=== PATIENT | female | born 1965 | race Two or more races ===

== ENCOUNTER 2019-07-01 17:59 | Inpatient (IN) | payer MEDICAID ==
[~2019-07-01] VITALS: Ht 152.4 cm; Wt 43.2 kg
[2019-07-01] MEDS ORDERED: HYDROCORTISONE SOD SUCC 100 MG/2 ML VIAL IVP ONE (18:30)
[2019-07-01] MEDS ORDERED: PROPRANOLOL HCL 1 MG/ML VIAL IVP ONE (18:30)
[2019-07-01] MEDS ORDERED: PROPYLTHIOURACIL 50 MG TABLET PO ONE (18:30)
[2019-07-01 18:45] LABS: BASOPHILS % (AUTO) 0.3 % (0.0-2.0); EOSINOPHILS % (AUTO) 0.8 % (1.0-6.0); HEMATOCRIT 41.1 % (36-46); HEMOGLOBIN 13.6 g/dL (12.0-16.0); LYMPHOCYTES # (AUTO) 1.6 K/uL (1.0-4.8); LYMPHOCYTES % (AUTO) 19.1 % (22.0-44.0); MEAN CORPUSCULAR HEMOGLOBIN 27.7 pg (26.0-34.0); MEAN CORPUSCULAR HGB CONC 33.1 G/dL (31.0-37.0); MEAN CORPUSCULAR VOLUME 84 fL (80-100); MONOCYTES # (AUTO) 0.7 K/uL (0.1-1.0); MONOCYTES % (AUTO) 8.3 % (2.0-9.0); NEUTROPHILS % (AUTO) 71.5 % (40.0-70.0); PLATELET COUNT (AUTO) 218 K/uL (150-450); RED BLOOD CELL COUNT(AUTO) 4.91 MIL/uL (4.00-5.20)
[2019-07-01 18:57] LABS: ANION GAP 10 mmol/L (8-16); CALCIUM, TOTAL 9.2 mg/dL (8.8-10.5); CARBON DIOXIDE 23 mmol/L (22-29); CHLORIDE 105 mmol/L (98-107); CREATININE 0.43 mg/dL (0.60-1.30); GLOMERULAR FILTR. RATE CALC > 60 mL/min (>60); GLUCOSE,RANDOM 128 mg/dL (70-110); POTASSIUM 4.5 mmol/L (3.5-5.1); SODIUM SERUM 138 mmol/L (136-145); UREA NITROGEN, BLOOD 14 mg/dL (7-18)
[2019-07-01 19:09] LABS: B-TYPE NATRIURETIC PEPTIDE 230 pg/mL (0-100)
[2019-07-01 19:11] LABS: ALANINE AMINOTRANSFERASE 14 U/L (12-78); ALBUMIN 3.2 g/dL (3.4-5.0); ALKALINE PHOSPHATASE 325 U/L (46-116); ASPARTATE AMINOTRANSFERASE 17 U/L (15-37); BILIRUBIN,TOTAL 0.6 mg/dL (0.1-1.0); CREATINE KINASE, TOTAL ONLY 31 U/L (26-192)
[2019-07-01] MEDS ORDERED: SODIUM CHLORIDE 0.9% 1,000 ML IV ONE (19:15)
[2019-07-01 19:35] LABS: THYROID STIMULATING HORMONE < 0.01 uIU/mL (0.36-3.74)
[2019-07-01] MEDS ORDERED: DILTIAZEM HCL 5 MG/ML 5 ML VIAL IVP ONE ×2 (19:45→20:45)
[2019-07-01] MEDS ORDERED: POTASSIUM IODIDE PO ONE (20:00)
[2019-07-01 20:16] LABS: APPEARANCE,URINE CLEAR (CLEAR); BILIRUBIN,URINE NEGATIVE (NEGATIVE); GLUCOSE, URINE (UA) NEGATIVE (NEGATIVE); KETONES,URINE NEGATIVE (NEGATIVE); LEUKOCYTE ESTERASE ,URINE NEGATIVE (NEGATIVE); NITRATE,URINE NEGATIVE (NEGATIVE); OCCULT BLOOD,URINE NEGATIVE (NEGATIVE); PROTEIN,URINE NEGATIVE (NEGATIVE); UROBILINOGEN,URINE 0.2 mg/dL (<=1.0)
[2019-07-01 20:21] LABS: AMPHET/METH SCREEN,URINE NEGATIVE (NEGATIVE); BARBITURATE SCREEN, URINE NEGATIVE (NEGATIVE); BENZODIAZEPINES SCREEN,URINE NEGATIVE (NEGATIVE); CANNABINOID SCREEN,URINE POSITIVE (NEGATIVE); COCAINE SCREEN,URINE NEGATIVE (NEGATIVE); METHADONE SCREEN, URINE NEGATIVE (NEGATIVE); OPIATE SCREEN,URINE NEGATIVE (NEGATIVE)
[2019-07-01 20:43] LABS: PHENCYCLIDINE SCREEN,URINE NEGATIVE (NEGATIVE)
[2019-07-01] MEDS ORDERED: ONDANSETRON HCL 4 MG/2 ML VIAL IVP PRN (20:45)
[2019-07-01] MEDS ORDERED: ACETAMINOPHEN 325 MG TABLET PO PRN (20:45)
[2019-07-01] MEDS ORDERED: DILTIAZEM HCL 125 MG in DEXTROSE 5%-WATER 100 ML IV SCH (21:00)
[2019-07-01 22:17] VITALS: BP 129/90
[2019-07-02] MEDS ORDERED: ZOLPIDEM TARTRATE 5 MG TABLET PO PRN (01:00)
[2019-07-02] MEDS ORDERED: 0.9% SODIUM CHLORIDE 10 ML SYRINGE IVP PRN (01:00)
[2019-07-02] MEDS ORDERED: ONDANSETRON HCL 4 MG/2 ML VIAL IVP PRN (01:00)
[2019-07-02] MEDS ORDERED: PROPRANOLOL HCL 60 MG SR CAPSULE PO SCH (01:00)
[2019-07-02 01:06] VITALS: BP 137/78
[2019-07-02 04:10] VITALS: BP 122/47
[2019-07-02 07:39] VITALS: BP_SYST 125; BP_SYST 132; BP_DIAS 77; BP_DIAS 82
[2019-07-02] MEDS ORDERED: PANTOPRAZOLE SODIUM 40 MG DR TABLET PO SCH (09:00)
[2019-07-02] MEDS ORDERED: POTASSIUM IODIDE 5%/IODINE 10% SOLUTION 14 ML PO SCH (09:00)
== END 2019-07-02 08:15 | disposition left against medical advice (07) | DRG 427 ==
LOC: EMS 18:02 → 5S 20:00
PROVIDERS: ADMIT Internal Medicine; ATTEND Internal Medicine
DX: E05.91 Thyrotoxicosis, unspecified with thyrotoxic crisis or storm (principal); Z53.21 Procedure and treatment not carried out due to patient leaving prior to being seen by health care provider; Z79.899 Other long term (current) drug therapy
CPT/HCPCS: 84443; 93005; 99291; G0378; J1720; J1800; J3490; J7030; J7060

== ENCOUNTER 2019-07-02 12:54 | Inpatient (IN) | payer MEDICAID ==
[~2019-07-02] VITALS: Ht 152.4 cm; Wt 45.9 kg
[2019-07-02] MEDS ORDERED: DILTIAZEM HCL 5 MG/ML 5 ML VIAL IVP ONE ×2 (14:58→15:00)
[2019-07-02 15:03] LABS: CREATINE KINASE, TOTAL ONLY 41 U/L (26-192); INR 1.2 (0.9-1.1); PROTHROMBIN TIME 12.1 SEC (9.4-11.6)
[2019-07-02] MEDS ORDERED: MORPHINE SULFATE 2 MG/ML SYRINGE IVP PRN (15:15)
[2019-07-02] MEDS ORDERED: BISACODYL 10 MG RECTAL RECTAL SUPPOSITORY PR PRN (15:15)
[2019-07-02] MEDS ORDERED: MAGNESIUM HYDROXIDE SUSPENSION 30 ML UDCUP PO PRN (15:15)
[2019-07-02] MEDS ORDERED: ACETAMINOPHEN 325 MG TABLET PO PRN ×2 (15:15)
[2019-07-02] MEDS ORDERED: ZOLPIDEM TARTRATE 5 MG TABLET PO PRN (15:15)
[2019-07-02] MEDS ORDERED: HYDROCODONE/ACETAMINOPHEN 5-325 MG TABLET PO PRN (15:15)
[2019-07-02] MEDS ORDERED: ONDANSETRON HCL 4 MG/2 ML VIAL IVP PRN ×2 (15:15)
[2019-07-02] MEDS ORDERED: 0.9% SODIUM CHLORIDE 10 ML SYRINGE IVP PRN (15:15)
[2019-07-02 15:45] LABS: B-TYPE NATRIURETIC PEPTIDE 217 pg/mL (0-100)
[2019-07-02] MEDS ORDERED: DILTIAZEM HCL 125 MG in DEXTROSE 5%-WATER 100 ML IV PRN (16:30)
[2019-07-02] MEDS: PROPRANOLOL HCL 10 MG TABLET PO SCH (16:47)
[2019-07-02] MEDS: HEPARIN SODIUM,PORCINE 5,000 UNITS/ML VIAL SQ SCH (16:47)
[2019-07-02 17:16] LABS: FREE T4 (FREE THYROXINE) > 8.00 ng/dL (0.76-1.46); THYROID STIMULATING HORMONE < 0.01 uIU/mL (0.36-3.74)
[2019-07-02] MEDS ORDERED: SODIUM CHLORIDE 0.9% 500 ML IV ONE (20:30)
[2019-07-02] MEDS: DOCUSATE SODIUM 100 MG CAPSULE PO SCH (21:23)
[2019-07-02 21:54] VITALS: BP 115/67
[2019-07-02 22:16] VITALS: BP 115/67
[2019-07-03] MEDS: HEPARIN SODIUM,PORCINE 5,000 UNITS/ML VIAL SQ SCH ×3 (00:20→15:33)
[2019-07-03] MEDS: METHIMAZOLE 5 MG TABLET PO SCH ×3 (00:20→20:44)
[2019-07-03 07:05] LABS: BASOPHILS % (AUTO) 0.8 % (0.0-2.0); EOSINOPHILS % (AUTO) 3.2 % (1.0-6.0); HEMATOCRIT 33.2 % (36-46); HEMOGLOBIN 11.1 g/dL (12.0-16.0); LYMPHOCYTES # (AUTO) 2.9 K/uL (1.0-4.8); LYMPHOCYTES % (AUTO) 48.6 % (22.0-44.0); MEAN CORPUSCULAR HGB CONC 33.6 G/dL (31.0-37.0); MEAN CORPUSCULAR VOLUME 83 fL (80-100); MONOCYTES # (AUTO) 0.6 K/uL (0.1-1.0); MONOCYTES % (AUTO) 10.1 % (2.0-9.0); NEUTROPHILS # (AUTO) 2.2 K/uL (1.8-7.7); NEUTROPHILS % (AUTO) 37.3 % (40.0-70.0); PLATELET COUNT (AUTO) 153 K/uL (150-450); RED BLOOD CELL COUNT(AUTO) 3.98 MIL/uL (4.00-5.20); RED CELL DISTRIBUTION WIDTH 15.2 % (11.5-14.5)
[2019-07-03 07:15] VITALS: BP 112/56
[2019-07-03 07:35] LABS: ANION GAP 10 mmol/L (8-16); CALCIUM, TOTAL 9.1 mg/dL (8.8-10.5); CARBON DIOXIDE 23 mmol/L (22-29); CHLORIDE 108 mmol/L (98-107); CREATININE 0.47 mg/dL (0.60-1.30); GLOMERULAR FILTR. RATE CALC > 60 mL/min (>60); GLUCOSE,RANDOM 89 mg/dL (70-110); POTASSIUM 3.7 mmol/L (3.5-5.1); SODIUM SERUM 141 mmol/L (136-145); UREA NITROGEN, BLOOD 13 mg/dL (7-18)
[2019-07-03] MEDS: PROPRANOLOL HCL 10 MG TABLET PO SCH ×2 (08:46)
[2019-07-03] MEDS: PANTOPRAZOLE SODIUM 40 MG DR TABLET PO SCH (08:46)
[2019-07-03] MEDS: DOCUSATE SODIUM 100 MG CAPSULE PO SCH ×2 (08:47→20:43)
[2019-07-03 11:08] VITALS: BP 122/58
[2019-07-03] MEDS: PROPRANOLOL HCL 60 MG SR CAPSULE PO SCH (14:52)
[2019-07-03 15:02] VITALS: BP 101/71
[2019-07-03 20:30] VITALS: BP 120/84
[2019-07-04 00:52] VITALS: BP 115/58
[2019-07-04] MEDS: HEPARIN SODIUM,PORCINE 5,000 UNITS/ML VIAL SQ SCH ×2 (00:58→08:27)
[2019-07-04 04:15] VITALS: BP 113/67
[2019-07-04 07:24] LABS: BASOPHILS % (AUTO) 0.3 % (0.0-2.0); EOSINOPHILS % (AUTO) 3.9 % (1.0-6.0); HEMATOCRIT 32.5 % (36-46); HEMOGLOBIN 11.1 g/dL (12.0-16.0); LYMPHOCYTES # (AUTO) 2.4 K/uL (1.0-4.8); LYMPHOCYTES % (AUTO) 32.9 % (22.0-44.0); MEAN CORPUSCULAR HEMOGLOBIN 28.1 pg (26.0-34.0); MEAN CORPUSCULAR HGB CONC 34.1 G/dL (31.0-37.0); MEAN CORPUSCULAR VOLUME 83 fL (80-100); MONOCYTES # (AUTO) 0.8 K/uL (0.1-1.0); MONOCYTES % (AUTO) 11.2 % (2.0-9.0); NEUTROPHILS # (AUTO) 3.7 K/uL (1.8-7.7); NEUTROPHILS % (AUTO) 51.7 % (40.0-70.0); PLATELET COUNT (AUTO) 154 K/uL (150-450); RED BLOOD CELL COUNT(AUTO) 3.93 MIL/uL (4.00-5.20); RED CELL DISTRIBUTION WIDTH 15.3 % (11.5-14.5)
[2019-07-04 07:50] LABS: ANION GAP 9 mmol/L (8-16); CALCIUM, TOTAL 8.2 mg/dL (8.8-10.5); CARBON DIOXIDE 25 mmol/L (22-29); CHLORIDE 105 mmol/L (98-107); CREATININE 0.52 mg/dL (0.60-1.30); GLOMERULAR FILTR. RATE CALC > 60 mL/min (>60); GLUCOSE,RANDOM 141 mg/dL (70-110); POTASSIUM 3.9 mmol/L (3.5-5.1); SODIUM SERUM 139 mmol/L (136-145); UREA NITROGEN, BLOOD 12 mg/dL (7-18)
[2019-07-04 08:11] VITALS: BP 102/57
[2019-07-04] MEDS: PROPRANOLOL HCL 60 MG SR CAPSULE PO SCH (08:26)
[2019-07-04] MEDS: DOCUSATE SODIUM 100 MG CAPSULE PO SCH (08:27)
[2019-07-04] MEDS: PANTOPRAZOLE SODIUM 40 MG DR TABLET PO SCH (08:27)
[2019-07-04] MEDS: METHIMAZOLE 5 MG TABLET PO SCH (08:27)
[2019-07-04 11:38] VITALS: BP 120/81
[2019-07-04] MEDS ORDERED: METHI10 PO (13:29)
[2019-07-04] MEDS ORDERED: PROP60SR PO (13:30)
== END 2019-07-04 13:53 | disposition home or self-care (01) | DRG 427 ==
LOC: EMS 12:55 → 5S 20:30
PROVIDERS: ADMIT Internal Medicine; ATTEND Internal Medicine
DX: E05.91 Thyrotoxicosis, unspecified with thyrotoxic crisis or storm (principal); I48.0 Paroxysmal atrial fibrillation; J44.9 Chronic obstructive pulmonary disease, unspecified; Z82.49 Family history of ischemic heart disease and other diseases of the circulatory system; Z79.899 Other long term (current) drug therapy
CPT/HCPCS: 76536; 84439; 84443; 84445; 84481; 86376; 93005; 93306; 99291; G0378; J1644; J2405; J3490; J7040; J7060

== ENCOUNTER 2019-07-21 10:42 | Emergency (ER) | payer MEDICAID ==
[~2019-07-21] VITALS: Ht 154.9 cm; Wt 50.0 kg
[~2019-07-21 10:42] MED LIST: METHI10 PO; PROP60SR PO
[2019-07-21] MEDS ORDERED: ESMOLOL HCL 2500 MG/NACL 250 ML IV PRN (11:15)
[2019-07-21] MEDS ORDERED: ESMOLOL HCL 10 MG/ML 10 ML VIAL IVP ONE ×2 (11:15→11:30)
[2019-07-21] MEDS ORDERED: SODIUM CHLORIDE 0.9% 1,000 ML IV ONE (11:15)
[2019-07-21 11:23] LABS: BASOPHILS % (AUTO) 0.2 % (0.0-2.0); EOSINOPHILS % (AUTO) 1.1 % (1.0-6.0); HEMATOCRIT 41.6 % (36-46); HEMOGLOBIN 13.9 g/dL (12.0-16.0); LYMPHOCYTES # (AUTO) 2.1 K/uL (1.0-4.8); MEAN CORPUSCULAR HGB CONC 33.5 G/dL (31.0-37.0); MEAN CORPUSCULAR VOLUME 84 fL (80-100); MONOCYTES # (AUTO) 0.8 K/uL (0.1-1.0); MONOCYTES % (AUTO) 8.6 % (2.0-9.0); NEUTROPHILS # (AUTO) 5.8 K/uL (1.8-7.7); NEUTROPHILS % (AUTO) 66.1 % (40.0-70.0); PLATELET COUNT (AUTO) 182 K/uL (150-450); RED BLOOD CELL COUNT(AUTO) 4.97 MIL/uL (4.00-5.20); RED CELL DISTRIBUTION WIDTH 15.2 % (11.5-14.5)
[2019-07-21 11:37] LABS: INR 1.2 (0.9-1.1); PROTHROMBIN TIME 12.1 SEC (9.4-11.6)
[2019-07-21 11:42] LABS: ANION GAP 9 mmol/L (8-16); CARBON DIOXIDE 27 mmol/L (22-29); CHLORIDE 105 mmol/L (98-107); CREATININE 0.44 mg/dL (0.60-1.30); GLUCOSE,RANDOM 88 mg/dL (70-110); POTASSIUM 3.9 mmol/L (3.5-5.1); SODIUM SERUM 141 mmol/L (136-145); UREA NITROGEN, BLOOD 10 mg/dL (7-18)
[2019-07-21 11:43] LABS: CALCIUM, TOTAL 8.6 mg/dL (8.8-10.5); GLOMERULAR FILTR. RATE CALC > 60 mL/min (>60)
[2019-07-21 11:47] LABS: B-TYPE NATRIURETIC PEPTIDE 270 pg/mL (0-100)
[2019-07-21 11:49] LABS: ALANINE AMINOTRANSFERASE 20 U/L (12-78); ALBUMIN 3.2 g/dL (3.4-5.0); ALKALINE PHOSPHATASE 333 U/L (46-116); ASPARTATE AMINOTRANSFERASE 18 U/L (15-37); BILIRUBIN,TOTAL 0.6 mg/dL (0.1-1.0); TOTAL PROTEIN, SERUM 8.3 g/dL (6.4-8.2)
[2019-07-21] MEDS ORDERED: PROPRANOLOL HCL 20 MG TABLET PO ONE (14:00)
[2019-07-21 15:14] LABS: FREE T4 (FREE THYROXINE) 3.56 ng/dL (0.76-1.46)
[2019-07-21 15:28] VITALS: BP 110/72
[2019-07-21 15:34] LABS: THYROID STIMULATING HORMONE < 0.01 uIU/mL (0.36-3.74)
== END 2019-07-21 16:17 | disposition home or self-care (01) ==
LOC: EMS 10:43
DX: I48.91 Unspecified atrial fibrillation (principal); E05.90 Thyrotoxicosis, unspecified without thyrotoxic crisis or storm
CPT/HCPCS: 36415; 71045; 80053; 83880; 84439; 84443; 84481; 84484; 85025; 85610; 85730; 93005; 96365; 96366; 96376; 99291; J3490; J7030